=== PATIENT | male | born 1970 | race Caucasian/White ===

== ENCOUNTER → 2021-12-06 | Outpatient (CLI) | payer OTHER, SELFPAY ==
--- NOTE | 2021-12-06 14:04 | STRESSREP_ITS ---
Stress Test Report Exercise stress test. 51-year-old man with a history of chest pain. Resting KG demonstrates normal sinus rhythm with a rate of 78 bpm normal i ntervals are noted resting blood pressure is 132/84 mmHg. The patient exercised according to regular [facility] protocol for total duration of 6 minutes and 20 seconds. The maximum heart rate attained was 155 bpm which was 92% of max impacted heart rate the maximum workload was 7.9 metabolic equivalents. At rest there were no ST or T wave changes noted suggest ischemia and at peak exercise upsloping ST changes were noted which did not meet the criteria for ischemia. The test was terminated due to dyspnea and the target heart rate being achieved. No chest pain was noted. Conclusion: Exercise stress test with no EKG criteria for ischemia at a moderate workload.
== END | disposition home or self-care (01) ==
PROVIDERS: PCP Family Medicine
DX: R06.02 Shortness of breath (principal); E84.0 Cystic fibrosis with pulmonary manifestations
CPT/HCPCS: 93017

== ENCOUNTER → 2022-01-15 | Outpatient (CLI) | payer OTHER, SELFPAY | END | disposition home or self-care (01) | LOC: SL 20:29 | PROVIDERS: PCP Family Medicine | DX: G47.10 Hypersomnia, unspecified (principal); G47.30 Sleep apnea, unspecified; E84.9 Cystic fibrosis, unspecified; R06.83 Snoring | CPT/HCPCS: 95810 ==